=== PATIENT | female | born 1990 | race Caucasian/White ===

== ENCOUNTER 2020-12-07 07:09 | Emergency (ER) | payer OTHER | END 2020-12-07 09:04 | disposition home or self-care (01) | LOC: ER1 07:09 | DX: S06.9X9A Unspecified intracranial injury with loss of consciousness of unspecified duration, initial encounter (principal); Z88.1 Allergy status to other antibiotic agents; Z88.8 Allergy status to other drugs, medicaments and biological substances; F17.200 Nicotine dependence, unspecified, uncomplicated; Y08.89XA Assault by other specified means, initial encounter | CPT/HCPCS: 70450; 84703; 99284 ==